=== PATIENT | male | born 1955 | race Caucasian/White ===

== ENCOUNTER 2020-11-25 10:40 | Inpatient (IN) ==
--- NOTE | 2020-11-09 15:42 | PAT Medication Instructions ---
Medication Instructions Date of Service November 09, 2020 Home Medications pantoprazole [Protonix] 40 mg PO QAM Take morning of surgery With a small sip of water, OTHERWISE NOTHING TO EAT OR DRINK AFTER MIDNIGHT: pantoprazole [Protonix] 40 mg PO QAM Other Notes If you have any questions please call us at [phone] or [phone] or [phone] or [phone]
--- NOTE | 2020-11-10 14:08 | Anesthesiology Consultation ---
Date of Service November 10, 2020 Assessment & Plan (1) Encounter for pre-operative examination: COVID Status: As of 11/10 assessment, patient denies travel to endemic area, known exposure/sick contacts, or symptoms of COVID19. Patient instructed that they and their household members must follow strict social distancing guidelines, wear a mask in public and avoid travel/events/gatherings for 14 days prior to surgery. Preoperative COVID19 testing to be completed prior to surgery per surgeon's arrangements (11/18). Patient made aware to self-isolate as much as possible between COVID testing and surgery. Chart Review Chart Review: Acceptable Risk for Surgery and Patient seen in Pre Admission Testing Teaching & Discussion Instructed NPO after midnight before surgery, except medications with 15 cc of water. Medication instructions provided according to the PAT guidelines. History Surgery Operation Date: 11/25/20 07:45 Proposed Procedures p L5-S1 Decompression and Fusion, Possible L4-L5, Spinal Cord Monitoirviridiana - Clive Aragon, Height/Weight Height: 6 ft 2 in Weight: 99.4 kg Allergies Allergy/AdvReac Type Severity Reaction Status Date / Time No Known Allergies Allergy Verified 11/05/20 11:00 Medications Home Medications Medication Instructions Recorded Confirmed Last Taken pantoprazole [Protonix] 40 mg PO QAM 11/05/20 11/05/20 Unknown Past Medical History Medical History Degenerative disc disease GERD (gastroesophageal reflux disease) History of osteomyelitis RLE History of prostate cancer dx 13 years ago; treated surgically History of vascular access device PICC for treatment of osteomyelitis Spinal stenosis Exercise / Class Metabolic Activity II 4-5 Yardwork/Stairs/Walk up hill Past Family History Family History Other No family history of adverse response to anesthesia Past Surgical History Surgical History History of colonoscopy History of esophagogastroduodenoscopy (EGD) History of prostate biopsy History of prostatectomy History of sinus surgery History of surgery removal of vascular access device History of surgery on extremity RLE (osteomyelitis) History of tonsillectomy Past Anesthesia History No Hx of Anesthesia Complications and No Family Hx of Anesthesia Complications History of PONV No Hx of PONV and No Hx of Motion Sickness Social History Smoking Status: Never smoker Do You Dip or Chew Tobacco: No Hx Alcohol Use: Yes alcohol intake frequency: holidays/special occasions only Hx Substance Use: No substance use type: does not use Review of Systems Pt denies any recent chest pain, shortness of breath, palpitations, cough, fever, URI, or uncontrolled acid reflux (controlled on PPI). Physical Exam Vital Signs BP: 152/93 (pt reports he is in pain today, usually 130s at PCP) P: 63bpm SPO2: 98% RA T: 98.1 F R: 16 ENMT Mouth: + dental restorations (crown on upper R rear molar); no chipped teeth and no loose teeth Thyromental Distance: > or= 3.5 Finger Breadths Mallampati Class: III Neck normal visual inspection; neck extension not limited Respiratory normal respiratory effort, lungs clear to auscultation Cardiovascular Rate/Rhythm: + irregularly irregular Heart Sounds: no murmur Vessels: no carotid bruit Testing Laboratory Results 11/10/20 14:21 11/10/20 14:21 PT 10.6 Seconds (9.0-12.0) 11/10/20 14:21 INR 1.0 (0.9-1.1) 11/10/20 14:21 APTT 26.6 Seconds (21.0-31.0) 11/10/20 14:21 Urine Color Yellow 11/10/20 Unknown Urine Appearance Clear (Clear) 11/10/20 Unknown Urine pH 5.5 (4.5-7.5) 11/10/20 Unknown Ur Specific [place] 1.018 (1.000-1.030) 11/10/20 Unknown Urine Protein Negative (Negative) 11/10/20 Unknown Urine Glucose (UA) Negative (Negative) 11/10/20 Unknown Urine Ketones Negative (Negative) 11/10/20 Unknown Urine Nitrite Negative (Negative) 11/10/20 Unknown Ur Leukocyte Esterase Negative (Negative) 11/10/20 Unknown Blood Type AB Positive 11/10/20 14:21 Antibody Screen NEGATIVE 11/10/20 14:21 Electrocardiogram Date: 11/10/20 Sinus rhythm at 66 bpm with premature atrial complexes. Nonspecific T wave abnormality. Prolonged QT. Chest X-Ray Date: 11/10/20 Findings: + NAD
--- NOTE | 2020-11-10 14:55 | XRay Report ---
XR chest Pre-admission PA/Lat HISTORY: 65 years-old Male pat preoperative exam. No acute chest complaints COMPARISON: None TECHNIQUE: PA and lateral views of the chest FINDINGS: Cardiac silhouette is upper limits of normal in size. No pneumothorax, pleural effusion, airspace con solidation or overt pulmonary edema. Spondylitic spurring of the spine. IMPRESSION: No acute process. ACT 112: Negative or not required by law. The above report was generated using voice recognition software. It may contain grammatical, syntax o r spelling errors. Electronically signed by: Sebastien Rowe M.D. 11/10/2020 2:54 PM
[2020-11-10 14:59] LABS: Basophils # (auto) 0.03 K/uL (0-0.2); Basophils % (auto) 0.4 %; Eosinophils # (auto) 0.35 K/uL (0-0.5); Eosinophils % (auto) 4.9 %; Hematocrit (blood only) 49.6 % (42-52); Immature Granulocytes # (auto) 0.02 K/uL (0.00-0.02); Immature Granulocytes % (auto) 0.3 %; Lymphocytes # (auto) 1.78 K/uL (1.2-3.4); Mean Corpuscular Hemoglobin 31.9 pg (25-34); Mean Corpuscular Hgb Conc 34.3 g/dL (32-36); Mean Corpuscular Volume 93.1 fL (80-100); Mean Platelet Volume 12.3 fL (7.4-10.4); Monocytes # (auto) 0.68 K/uL (0.11-0.59); Monocytes % (auto) 9.5 %; Neutrophils # (auto) 4.27 K/uL (1.4-6.5); Neutrophils % (auto) 59.9 %; Platelet Count 224 K/uL (130-400); RDW Standard Deviation 44.3 fL (36.4-46.3); Red Blood Count 5.33 M/uL (4.7-6.1); White Blood Count 7.13 K/uL (4.8-10.8)
[2020-11-10 15:00] LABS: Appearance Urine Clear (Clear); Bilirubin Urine Negative (Negative); Blood Urine Negative (Negative); Color Urine Yellow; Glucose Urine UA Negative (Negative); Ketones Urine Negative (Negative); Leukocyte Esterase Urine Negative (Negative); Nitrite Urine Negative (Negative); Protein Urine Negative (Negative); Specific Gravity Urine 1.018 (1.000-1.030); Urobilinogen Urine Negative (Negative); pH Urine 5.5 (4.5-7.5)
[2020-11-10 15:11] LABS: Partial Thromboplastin Time 26.6 Seconds (21.0-31.0); Prothrombin Time 10.6 Seconds (9.0-12.0)
[2020-11-10 15:23] LABS: BUN Creatinine Ratio 12.4 (10-20); Calcium 9.4 mg/dl (8.5-10.1); Creatinine Clr Calc Pharmacy 98.7 ml/min; Est GFR (African American) 98.2; Est GFR (Non-African American) 84.7; Potassium 3.8 mmol/L (3.5-5.1)
--- NOTE | 2020-11-10 17:06 | Electrocardiogram Report ---
Test Reason : Blood Pressure : / mmHG Vent. Rate : 066 BPM Atrial Rate : 066 BPM P-R Int : 182 ms QRS Dur : 082 ms QT Int : 440 ms P-R-T Axes : 026 010 -14 degrees QTc Int : 461 ms Sinus rhythm with Premature atrial complexes Nonspecific T wave abnormality Prolonged QT Abnormal ECG No previous ECGs available Confirmed by Fortino Ness ([id number]) on 11/10/2020 5:05:43 PM Referred By: Clive Aragon Confirmed By:Fortino Ness
[~2020-11-25 10:40] MED LIST: ACETAMINOPHEN 500 MG TAB PO SCH; CeleBREX 200 MG CAP PO SCH; GABAPENTIN 300 MG CAP PO SCH; LR 15ML/HR IV SCH; ceFAZolin 2000MG 2,000 MG/15 ML SYR IV SCH
[2020-11-25] MEDS ORDERED: PROPOFOL IV EMULSION 10 MG/ML 20 ML VIAL IV ONE (11:51)
[2020-11-25] MEDS ORDERED: ONDANSETRON INJ 2 MG/ML 2 ML VIAL ONE (11:51)
[2020-11-25] MEDS ORDERED: DEXAMETHASONE SOD INJ 4 MG/ML VIAL ONE (11:51)
[2020-11-25] MEDS ORDERED: MIDAZOLAM HCL 1 MG/ML 2ML VIAL ONE (11:51)
[2020-11-25] MEDS ORDERED: fentaNYL citrate 100 MCG/2 ML VIAL ONE (11:51)
[2020-11-25] MEDS ORDERED: ROCURONIUM BROMIDE 10 MG/ML 5 ML VIAL IV ONE ×2 (11:51→13:26)
[2020-11-25] MEDS ORDERED: LIDOCAINE HCL 2% 2 ML VIAL/AMP(20MG/ML) INFIL ONE (11:51)
[2020-11-25] MEDS ORDERED: ePHEDrine sulfate 50 MG/ML AMP IV PRN (12:19)
[2020-11-25] MEDS ORDERED: fentaNYL citrate 100 MCG/2 ML VIAL IV PRN (12:19)
[2020-11-25] MEDS ORDERED: HYDROmorphone INJ 2 MG/ML SYR/VIAL IV PRN (12:19)
[2020-11-25] MEDS ORDERED: ONDANSETRON INJ 2 MG/ML 2 ML VIAL IV PRN ×2 (12:19→17:15)
[2020-11-25] MEDS ORDERED: ATROPINE SULFATE 0.1 MG/ML 10ML SYR IV PRN (12:19)
--- NOTE | 2020-11-25 12:22 | History & Physical Bridge Note ---
Date of Service November 25, 2020 History & Physical Bridge Note I have examined the patient, reviewed the History & Physical and in the interval since the performance of the History & Physical I have noted the following changes of clinical significance: no changes noted
--- NOTE | 2020-11-25 12:23 | History & Physical Report ---
Date of Service November 25, 2020 Assessment & Plan (1) Neurogenic claudication due to lumbar spinal stenosis: Admission and Anticipated Discharge Date Admission Date: L5-S1 decompression fusion, possible L4-L5 History of Present Illness Chief Complaint: Back and bilateral leg pain Primary Care Provider: Mayank De This is a 65-year-old male who presents with chronic persistent back and bilateral leg pain. After failing course of nonoperative care is here for surgical invention. Allergies Allergy/AdvReac Type Severity Reaction Status Date / Time No Known Allergies Allergy Verified 11/25/20 11:21 Home Medications Medication Instructions Recorded Confirmed Type pantoprazole [Protonix] 40 mg PO QAM 11/05/20 11/25/20 History Past Med/Surg History Medical History Degenerative disc disease GERD (gastroesophageal reflux disease) History of osteomyelitis RLE History of prostate cancer dx 13 years ago; treated surgically History of vascular access device PICC for treatment of osteomyelitis Spinal stenosis Surgical History History of colonoscopy History of esophagogastroduodenoscopy (EGD) History of prostate biopsy History of prostatectomy History of sinus surgery History of surgery removal of vascular access device History of surgery on extremity RLE (osteomyelitis) History of tonsillectomy Family History Other No family history of adverse response to anesthesia Social History Smoking Status: Never smoker Second Hand Exposure: Yes (as a child); Do You Dip or Chew Tobacco: No; Hx Alcohol Use: Yes Hx Substance Use: No Preferred Language: Burmese Communication Ability: Effective Sandwich Peddler Required: No Beliefs That Will Affect Care: None Current Living Situation: Spouse Feels Safe at Home: Yes Safety Concerns: Feels Safe At This Time Assistive Devices: None Physical Exam Physical Exam: Patient is alert and oriented Heart regular in rhythm Lungs clear to auscultation Results & Data ([facility]) Vital Signs (Past 12 Hours) Vital Signs Temp Pulse Resp BP Pulse Ox 11/25/20 11:44 156/92 H 11/25/20 11:11 36.6 C 93 H 20 173/112 H 99
[2020-11-25] MEDS ORDERED: BACITRACIN INJ 50,000 UNIT VIAL ONE (12:40)
[2020-11-25] MEDS ORDERED: BUPIVACAINE/EPINEPHRINE 0.5% MPF 1:200,000 30 ML VIAL ONE (12:41)
[2020-11-25] MEDS ORDERED: KETAMINE 50 MG/5 ML SYRINGE ONE (13:16)
[2020-11-25] MEDS ORDERED: ALBUTEROL HFA INHALER 8.5 GM ONE (13:24)
[2020-11-25] MEDS ORDERED: GLYCOPYRROLATE 0.2 MG/ML VIAL ONE ×2 (13:24→15:01)
[2020-11-25] MEDS ORDERED: SODIUM CHLORIDE 0.9% INJ 10 ML VIAL ONE (13:39)
[2020-11-25] MEDS ORDERED: ePHEDrine sulfate 50 MG/ML AMP ONE (13:39)
[2020-11-25] MEDS ORDERED: FLOSEAL HEMOSTATIC MATRIX 10ML TOP ONE (14:48)
[2020-11-25] MEDS ORDERED: ALBUMIN HUMAN 5% 12.5 GM/250 ML VIAL IV ONE (14:54)
[2020-11-25] MEDS ORDERED: PHENYLEPHRINE 100MCG/ML 5ML SYR ONE (14:59)
[2020-11-25] MEDS ORDERED: PHENYLEPHRINE HCL 10 MG/ML VIAL ONE (15:01)
[2020-11-25] MEDS ORDERED: NEOSTIGMINE METHYLSULFATE 1 MG/ML 10ML VIAL ONE (15:01)
--- NOTE | 2020-11-25 15:29 | Operative Report ---
Post Operative Report Pre & Post Diagnosis Operation Date: 11/25/20 12:25 Pre-Op Diagnosis: Lumbar spinal stenosis with radiculopathy Post-Op Diagnosis: Same I identified the patient and participated in the time-out.: Yes Procedure Operation Date: 11/25/20 12:25 Actual Procedures #1 lumbar decompression with bilateral medial facetectomies foraminotomies L3-4 L4-5 and L5-S1. #2 posterior spinal fusion L4-L5 L5-S1. #3 placement of posterior instrumentation L4-5 and L5-S1. #4 interbody fusion L4-5 L5-S1. #5 placement peek cage 11 x 26 mm at L4-5 and 10 x 26 mm L5-S1. #6 placement locally harvested morselized autograft in the posterior lateral gutters. #7 placement of I factor in the posterior gutters interbody space. Surgeon Clive Aragon DO Cosmetic Counselor Radha Granados Estimated Blood Loss 250 Findings Consistent with Post-Op Diagnosis Specimens None Indications This is a 65-year-old male well-known to me the presents with above-mentioned diagnosis after failing since course of nonoperative care is here for surgical invention. Description of Procedure Patient was met with identified informed consent obtained. Patient was then taken to the operative suite underwent intubation placed in a prone position the Prashant table atop the Obed frame. All bony prominences well-padded eyes inspected to ensure no external pressure placed upon the. This point the lumbar spine was prepped and draped in a sterile fashion. Sharp dissection with the assistance of Bovie cautery performed down to and exposing the lamina and transverse processes of L4-L5 and sacral ala bilaterally. From caudal cephalad fashion complete laminectomy L5 L4 and partial laminectomy L3 was performed including medial facetectomies and foraminotomies addressing severe spinal stenosis. Pedicle screws were then placed in L4-L5 and S1 levels bilaterally with assistance of fluoroscopy and the proper sized olga placed. By way of a transforaminal portion left complete discectomy of L5-S1 was performed endplates curetted to subcortical being bone and a 10 x 26 mm peek cage filled with I f actor tapped in position. Then proceeded L4-L5 again by way of a transforaminal on the left discectomy performed endplates curetted to subcortically bone and 11 x 26 mm peek cage filled with I factor tapped in position. The rods were then locked in final position bilaterally. The transverse processes of L4-L5 and sacral ala burred to subcortical bleeding bone. I factor and local autograft was then placed in the posterior gutters. 15 round VU drain inserted. The incision was then closed with 1 Vicryl the fascia 2-0 Vicryl subcutaneously and 4 Monocryl for final skin closure. Steri-Strip sterile dressings placed. Patient will continue PACU stable condition. Please note spinal cord monitoring was utilized at the procedure no changes noted. Lastly Radha Granados was present at the entire procedure about the patient positioning complex portions of the surgery and final skin closure. I attest to the content of the Intraoperative Record and any orders documented t herein. Any exceptions are noted below.
--- NOTE | 2020-11-25 15:46 | Fluoroscopy Report ---
FL lumbar spine 2-3V CLINICAL HISTORY: L5-S1 DECOMPRESSION AND FUSION POSSIBLE L4-L5 COMPARISON STUDY: MRI dated 11/05/2020 FLUOROSCOPY TIME: 30 seconds. NUMBER OF FLUOROSCOPIC IMAGES: 2 FINDINGS: 2 intraoperative fluoroscopic spot images demonstrate postsurgical changes of an L4-5 and L 5-S1 discectomies interbody fusion. There is posterior pedicle screw fixation with adjoining spinal r ods IMPRESSION: Intraoperative fluoroscopic spot images demonstrating an L4-S1 spinal decompression and fusion. ACT 112: Negative or not required by law. Electronically signed by: Aaron Renee M.D. 11/25/2020 3:45 PM
--- NOTE | 2020-11-25 16:02 | Anesthesiology Progress Note ---
Date of Service November 25, 2020 Anesthesia Post Procedure Vital Signs Vital Signs: Temp Pulse Pulse Resp BP Pulse Ox 11/25/20 15:59 80 14 112/64 99 11/25/20 15:50 81 14 107/65 99 11/25/20 15:43 36.6 C 94 H 14 146/80 H 100 11/25/20 11:44 156/92 H 11/25/20 11:11 36.6 C 93 H 20 173/112 H 99 Transfer of Care Handoff Completed per policy Notes Mental Status: alert / awake / arousable and participated in evaluation Patient Amnestic to Procedure: Yes Nausea / Vomiting: adequately controlled Pain: adequately controlled Airway Patency, RR, SpO2: stable & adequate BP & HR: stable & adequate Hydration State: stable & adequate Anesthetic Complications: no major complications apparent and Pt Satisfied with anesthetic care
[2020-11-25] MEDS ORDERED: HYDROmorphone INJ 1 MG/ML SYRINGE IV PRN (17:15)
[2020-11-25] MEDS ORDERED: FAMOTIDINE 20 MG TAB PO PRN (17:15)
[2020-11-25] MEDS ORDERED: LORazepam 0.5 MG TAB PO PRN (17:15)
[2020-11-25] MEDS ORDERED: ACETAMINOPHEN 1,000 MG/100 ML VIAL IV PRN (17:15)
[2020-11-25] MEDS ORDERED: METOCLOPRAMIDE HCL INJ 5 MG/ML 2 ML VIAL IV PRN (17:15)
[2020-11-25] MEDS ORDERED: LORazepam 0.5 MG/1 ML VIAL IV PRN (17:15)
[2020-11-25] MEDS ORDERED: hydrOXYzine HCl 25 MG TAB PO PRN (17:15)
[2020-11-25] MEDS ORDERED: HYDROmorphone INJ 0.5 MG/0.5 ML SYR IV PRN (17:15)
[2020-11-25] MEDS ORDERED: SOD PHOSPHATE/SOD BIPHOSPHATE ENEMA 132 ML BTL PR PRN (17:15)
[2020-11-25] MEDS ORDERED: diphenhydrAMINE Capsule 25 MG CAP PO PRN (17:15)
[2020-11-25] MEDS ORDERED: DO NOT ADMINISTER FLU VACCINE PRN (17:15)
[2020-11-25] MEDS ORDERED: PROMETHAZINE HCL 12.5 MG in SODIUM CHLORIDE 0.9% 50 ML IV PRN (17:15)
[2020-11-25] MEDS ORDERED: oxyCODONE HCL IR 5 MG TAB (IMMEDIATE RELEASE) PO PRN (17:15)
[2020-11-25] MEDS ORDERED: NALOXONE HCL 0.4 MG/1 ML VIAL/CARP IV PRN (17:15)
[2020-11-25] MEDS ORDERED: ONDANSETRON 4 MG OD TAB PO PRN (17:15)
[2020-11-25] MEDS ORDERED: MAGNESIUM HYDROXIDE SUSP 30 ML UDC PO PRN (17:15)
[2020-11-25] MEDS ORDERED: DO NOT ADMINISTER PNEUMOCOCCAL VACCINE PRN (17:15)
[2020-11-25] MEDS ORDERED: ALUMINUM/MAGNESIUM SUSP 30 ML UDC PO PRN (17:15)
[2020-11-25] MEDS ORDERED: bisacodyL 10 MG SUPP PR PRN (17:15)
[2020-11-25] MEDS: KETOROLAC 30 MG/ML VIAL IV SCH ×3 (17:56→23:31)
[2020-11-25] MEDS: LACTATED RINGER'S 1,000 ML IV SCH ×2 (17:56→23:31)
[2020-11-25] MEDS: ACETAMINOPHEN 500 MG TAB PO PRN (20:55)
[2020-11-25] MEDS: DOCUSATE SODIUM/SENNA 50/8.6MG TAB PO SCH (20:55)
[2020-11-25] MEDS: ceFAZolin 2000MG 2,000 MG/15 ML SYR IV SCH (20:55)
[2020-11-25] MEDS ORDERED: COUGH DROP (SUGAR FREE) LOZ 24 LOZ/1 BOX BUCCAL PRN (23:35)
[2020-11-26] MEDS: KETOROLAC 30 MG/ML VIAL IV SCH ×2 (05:10→12:42)
[2020-11-26] MEDS: ceFAZolin 2000MG 2,000 MG/15 ML SYR IV SCH (05:10)
[2020-11-26] MEDS: POLYETHYLENE (MIRALAX) 17 GM PACK PO SCH ×4 (05:10→19:56)
[2020-11-26 06:34] LABS: Hematocrit (blood only) 40.4 % (42-52); Hemoglobin 13.7 g/dL (14.0-18.0); Immature Granulocytes # (auto) 0.05 K/uL (0.00-0.02); Immature Granulocytes % (auto) 0.3 %; Lymphocytes % (auto) 6.5 %; Mean Corpuscular Hemoglobin 31.4 pg (25-34); Mean Corpuscular Hgb Conc 33.9 g/dL (32-36); Mean Corpuscular Volume 92.4 fL (80-100); Mean Platelet Volume 11.7 fL (7.4-10.4); Monocytes # (auto) 1.24 K/uL (0.11-0.59); Monocytes % (auto) 8.1 %; Neutrophils # (auto) 13.11 K/uL (1.4-6.5); Neutrophils % (auto) 85.1 %; Platelet Count 265 K/uL (130-400); RDW Coefficient of Variation 13.3 % (11.5-14.5); RDW Standard Deviation 45.5 fL (36.4-46.3); Red Blood Count 4.37 M/uL (4.7-6.1)
[2020-11-26 07:14] LABS: BUN Creatinine Ratio 12.6 (10-20); Calcium 9.2 mg/dl (8.5-10.1); Creatinine Clr Calc Pharmacy 78.6 ml/min; Est GFR (African American) 82.1; Est GFR (Non-African American) 70.9; Potassium 3.9 mmol/L (3.5-5.1)
[2020-11-26] MEDS: ACETAMINOPHEN 500 MG TAB PO PRN (07:43)
[2020-11-26] MEDS: PANTOprazole 40 MG TAB PO SCH (08:39)
--- NOTE | 2020-11-26 12:20 | Orthopedic Progress Note ---
Date of Service November 26, 2020 Assessment & Plan (1) Neurogenic claudication due to lumbar spinal stenosis: Admission and Anticipated Discharge Date Admission Date: November 25, 2020 This time we will continue physical therapy on her VU output and possible discharge home in next few days. Subjective Back pain controlled leg symptoms markedly improved. Physical Exam Physical Exam: Patient is good strength testing appears comfortable. Results & Data ([facility]) Vital Signs (Past 12 Hours) Vital Signs Temp Pulse Resp BP Pulse Ox 11/26/20 07:58 36.7 C 69 18 168/95 H 97 11/26/20 03:50 36.5 C 65 16 101/62 96
[2020-11-26] MEDS: traMADol HCL 50 MG TABLET PO PRN ×2 (17:11→23:09)
[2020-11-26] MEDS: DOCUSATE SODIUM/SENNA 50/8.6MG TAB PO SCH (19:56)
[2020-11-27] MEDS: ACETAMINOPHEN 500 MG TAB PO PRN (00:03)
[2020-11-27] MEDS: traMADol HCL 50 MG TABLET PO PRN (06:20)
[2020-11-27] MEDS: POLYETHYLENE (MIRALAX) 17 GM PACK PO SCH ×2 (06:20→11:59)
[2020-11-27] MEDS: PANTOprazole 40 MG TAB PO SCH (08:43)
[2020-11-27] MEDS ORDERED: dexAMETHasone 8 MG in SYRINGE 0 ML IV SCH (09:00)
--- NOTE | 2020-11-27 10:07 | Discharge Summary ---
Date of Service November 27, 2020 Admission HPI Per Admitting Provider This is a 65-year-old male who presents with chronic persistent back and bilateral leg pain. After failing course of nonoperative care is here for surgical invention. Principal Diagnosis Lumbar spinal stenosis with neurogenic claudication Discharge Data Allergies Allergy/AdvReac Type Severity Reaction Status Date / Time No Known Allergies Allergy Verified 11/25/20 11:21 Procedures Performed Operation Date: 11/25/20 12:25 Actual Procedures p L4-S1 Decompression and Fusion, Spinal Cord Monitoring, Application of Bone Graft(Not Applicable) - Clive Aragon DO Ordered Studies 11/25/20 12:25 FL fluoroscopy <1hr Routine FL lumbar spine 2-3V Routine Hospital Course (1) Neurogenic claudication due to lumbar spinal stenosis: Patient went lumbar decompression fusion tolerates well second orthopedic for postoperative. Postop day 1 is up and ambulating Jose postop day #2. Excellent strength testing VU drain decreasing appropriately. Pain well controlled. Subsequent discharge home. Discharge orders instructions from the chart for further review. Total Time Total Time Spent Total Time Spent (In Minutes): 20 minutes Discharge Plan Discharge Items Patient Disposition: Home - Self-Care Reason For Visit: Spinal Stenosis, Lumbar Region without Discharge Diagnosis: Lumbar spinal stenosis with radiculopathy Activity: As commented below Non-emergency contact: Primary Care Provider Call non-emergency contact if: you have any medication questions Follow-up/Referrals: Mayank De [Primary Care Provider] - Diet: Regular Addtl Attending Provider Instructions: ACTIVITY RECOMMENDATIONS: SELF CARE INSTRUCTIONS AFTER THORACIC/LUMBAR FUSIONS 1. You may walk to your tolerance. It is good exercise for your legs and back. Expect some back and intermittent leg aches and pains. 2. You may perform "counter-top" level activities (make a sandwich, rody with a project, etc.). 3. No bending or lifting of more than 10 pounds or back twisting of any nature (roll like a log when turning in bed). 4. You may ride in a car for 20-30 minutes at a time. No driving until after your first visit with your doctor. 5. Frequent changes of position and restricting sitting to 30 minutes at a time will help limit the amount of back spasms and stiffness you may experience. 6. You may discontinue the use of ambulatory aids (cane, crutches, etc.) once your strength and confidence allow. 7. You may customer training specialist the shower and let water strike your incision when you arrive home at least once daily. Do not take a tub bath, sit in a hot tub or go into a swimming pool until after your first recheck in the office. SPECIAL CARE INSTRUCTIONS: VERY IMPORTANT TO READ AND REVIEW A. Your surgical incision has been closed with a cosmetic suture under the skin that will dissolve in about 6 weeks. In 14 days, you can use a pair of clean scissors and cut the suture that is left outside of the skin at the ends of your incision. 1. The small skin tapes can be removed 7 days after surgery if they have not fallen off by that point. 2. You may keep the wound open to air as much as possible to promote healing after post-op day number 5 unless told otherwise by your doctor. 3. If you think the wound looks like it is becoming infected (redness or worsening drainage) and/or you are experiencing fever, chill or worsening back pain and muscle spasms, contact the office so that we may evaluate you as soon as possible. B. Complications are uncommon, but please contact us if you have any signs or symptoms of: 1. wound infection (fever higher than 102.5 degrees F, redness, separation of wound, drainage, or increasing pain from the incision) 2. blood clots in legs (pain, swelling, redness and warmth in legs) 3. urinary tract infection (fever higher than 102.5 degrees F, burning upon urination or increased frequency of urination) 4. nerve problems (inability to walk on your toes or heels, numbness, loss of bowel or bladder control) 5. any other symptoms that concern you C. Please call the office at if you have any concerns or questions about your operation or recovery. D. No smoking! Smoking drastically decreases the chance of a solid fusion. E. Do not take any anti-inflammatory medications (Indocin, Advil, Motrin, Aspirin, Naprosyn, etc.) as these may inhibit the chance of a solid fusion. Tylenol is okay to take for pain. MANAGING PAIN AFTER SPINAL SURGERY 1. Narcotic medication is intended for short-term use and will be provided for surgical pain. Surgical pain usually lasts for a period of 4-6 weeks. Narcotic medication includes Percocet, Vicodin, Darvocet, Tylenol #3 or Lortab. 2. Longer-term pain is more appropriately treated with non-narcotic medication such as Tylenol ES. 3. Muscle spasm is not appropriately treated with narcotics. Muscle relaxers such as Soma, Flexeril or Skelaxin can be used along with Tylenol ES. 4. Remember that we all live with some "aches and pains". This is not unusual or uncommon after an injury or as we get older. a. Back pain is expected and may include muscle spasms for 4 to 6 weeks after surgery. The pain should gradually improve. If the pain worsens for no apparent reason, please contact the office. b. Intermittent leg pain may also be experienced and should not be concerned about unless it worsens for no apparent reason. If so, please contact the office. 5. We will provide appropriate medication within the normal guidelines of their prescribed use. We will also be very cautious and aware of potential abuse and extended duration of patients' medication needs. a. Pain medications are for your comfort and to assist with sleep and rest so that the tissue can heal. They are not provided in order to return to normal activity and should not be used through the day. To do so or worsening pain at night can result from ongoing tissue damage and deve lopment of tolerance to the prescribed medicine. 6. Please allow 2-3 days to process refills. Prescriptions will not be mailed but must be picked up at the office. FOLLOW UP VISIT: Keep your scheduled follow-up appointment. Any questions, please call the office at . Pending Studies at Discharge: No Stand-Alone Forms: [facility], Smoking Cessation Medications and DC Order Prescriptions: New oxycodone 5 mg tablet 5 mg PO Q6H PRN (Reason: pain, severe) Qty: 30 RF: 0 tramadol 50 mg tablet 50 mg PO Q6H PRN (Reason: pain, moderate) Qty: 30 RF: 0 Continued pantoprazole [Protonix] 40 mg Tablet,Delayed Release (Dr/Ec) 40 mg PO QAM RF: 0 Discharge Orders: Discharge Order (Routine); Ordered 11/27/20 Ordered By: Clive Aragon Admission Data Admit Date/Time: 11/25/20 15:57 Attending Provider: Clive Aragon Admit Provider: Clive Aragon Primary Care Provider: Mayank De
== END 2020-11-27 17:27 | disposition home or self-care (01) | DRG 455 ==
LOC: ASU 10:40 → 3E 15:57

== ENCOUNTER 2024-06-26 09:12 | Observation (INO) ==
--- NOTE | 2024-06-26 10:27 | History & Physical Report ---
Date of Service June 26, 2024 Assessment & Plan (1) NSTEMI (non-ST elevated myocardial infarction): Plan: Continue IV heparin Discussed with Dr Ahuja and Dr Bhakta and patient will be taken to the cardiac cath Further treatment pending results of cardiac catheterization Notable prior night terrors on metoprolol and bisoprolol therefore recently discontinued these 1 month ago Notable also on Xarelto for cardiovascular benefits - he has not history of atrial fibrillation or alterative reason he is on this Lipid panel and HbA1C with AM labs Plan GERD - continue pantoprazole 40mg PO daily VTE Prophylaxis - IV heparin Diet - NPO pending cardiac catheterization Disposition - admit to PCU Admission and Anticipated Discharge Date Admission Date: June 26, 2024 History of Present Illness Chief Complaint: Chest pain Primary Care Provider: Rupert Middleton DO Armaan Phillips is a 68 year old male with known silent coronary artery disease s/p cardiac stents who presents as a direct admission from [facility] due to chest pain with elevated troponin. He presented to the ER overnight with chest pain after eating earlier in the evening. Sargents like indigestion with pressure across upper chest with symptoms lasting for an hour. No radiation, diaphoresis or shortness of breath. Some relief with antacid and improved with lying down. In the ER his troponin increased from 92 -> 259 and his case was discussed with his drafter electronic naval gunfire liaison officer Dr Llanes and accepted patient for transfer. Allergies Allergy/AdvReac Type Severity Reaction Status Date / Time ticagrelor [From Brilinta] AdvReac Difficulty Unverified 06/26/24 11:06 Breathing Home Medications Medication Instructions Recorded Confirmed Type pantoprazole 40 mg tablet,delayed 40 mg PO QAM 11/05/20 06/26/24 History release (Protonix) aspirin 81 mg tablet,delayed 81 mg PO QAM 03/15/23 06/26/24 History release rivaroxaban 2.5 mg tablet (Xarelto) 2.5 mg PO BID 03/15/23 06/26/24 History rosuvastatin 5 mg tablet 5 mg PO DAILY 06/26/24 06/26/24 History valsartan 40 mg tablet 40 mg PO HS 06/26/24 06/26/24 History Past Med/Surg History Problem List (Updated 06/26/24 @ 11:26 by Vicky Ahuja DO) Hyperbilirubinemia Hypercholesteremia PAC (premature atrial contraction) PVC (premature ventricular contraction) Thoracic aortic aneurysm NSTEMI (non-ST elevated myocardial infarction) Encounter for pre-operative examination Neurogenic claudication due to lumbar spinal stenosis Gross hematuria Nephrolithiasis Prostate cancer Medical History Kidney stone on right side History of kidney stones History of vascular access device PICC for treatment of osteomyelitis History of osteomyelitis RLE Spinal stenosis Degenerative disc disease GERD (gastroesophageal reflux disease) History of prostate cancer dx 15 years ago; treated surgically Surgical History History of surgery for kidney stones History of lithotripsy History of cardiac cath Jan 13 2022 - [facility] - asymptomatic blockages...total of 5 stents. History of cholecystectomy Aug 17 2022. History of lumbar fusion History of surgery removal of vascular access device History of prostatectomy History of sinus surgery History of surgery on extremity RLE (osteomyelitis) History of prostate biopsy History of tonsillectomy History of esophagogastroduodenoscopy (EGD) History of colonoscopy Family History Aunt Family history of colon cancer Other No family history of adverse response to anesthesia Social History Smoking Status: Never smoker Second Hand Exposure: No; Do You Dip or Chew Tobacco: No; Hx Alcohol Use: No Hx Substance Use: No Preferred Language: Samoan Communication Ability: Effective Outside Cutter Required: No Beliefs That Will Affect Care: None marital status: Current Living Situation: Spouse Other Information That Helps Us Care for You: No Feels Safe at Home: Yes Safety Concerns: Feels Safe At This Time Assistive Devices: None Review of Systems Review of Systems: All systems reviewed & are unremarkable except as noted in HPI & below Physical Exam Constitutional: WD/WN, vitals as above Eyes: + anicteric sclerae; normal pupil size ENMT: external ear and nose normal, oropharynx normal Respiratory: normal respiratory effort, lungs clear to auscultation Cardiovascular: RRR, no murmur, no edema Gastrointestinal (Abdomen): normal bowel sounds, soft, nontender, no hepatosplenomegaly Musculoskeletal: no cyanosis or clubbing, extremities motor strength 5/5 Skin: no rashes, warm and dry Neurologic: moves all extremities and awake; not confused Psychiatric: A+Ox3, euthymic affect Results & Data Results & Data Vital Signs (Past 12 Hours) Vital Signs Temp Pulse Resp BP Pulse Ox O2 Del Method 06/26/24 10:03 69 19 98 06/26/24 10:00 160/85 H 06/26/24 09:51 82 18 96 06/26/24 09:45 71 15 96 06/26/24 09:31 182/95 H 06/26/24 09:24 62 06/26/24 09:19 36.9 C 70 19 185/129 H 97 Room Air Laboratory Results 06/26/2024 [00:16] Total bilirubin 1.1 Sodium 139 Potassium 3.4 WBC 7.41 Hgb 16.5 [1am] HS Troponin I 92 [3am] HS troponin I 259 ECG Rate (beats per minute): 81 Rhythm: normal sinus Findings: + other (Non-specific T wave abnormality) Code Status & VTE Plan VTE Prophylaxis Plan VTE Prophylaxis will be ordered: Yes PG Care Time/CCT Total # of Minutes Spent Total Time Spent with Patient: Total time spent is greater than 50% in coordination of care (as documented) at patient's floor/unit and/or counseling patient: Coding Level of Care Code 37208 INT INP/OBS CARE 2/55MIN Diagnoses NSTEMI (non-ST elevated myocardial infarction) I21.4
--- NOTE | 2024-06-26 10:36 | Pre Anesthesia Assessment ---
Date of Service June 26, 2024 Pre Sedation Assessment Vital Signs Temp Pulse Resp BP Pulse Ox O2 Del Method 06/26/24 10:03 69 19 98 06/26/24 10:00 160/85 H 06/26/24 09:51 82 18 96 06/26/24 09:45 71 15 96 06/26/24 09:31 182/95 H 06/26/24 09:24 62 06/26/24 09:19 36.9 C 70 19 185/129 H 97 Room Air Cardiovascular RRR, no murmur, no edema Respiratory normal respiratory effort, lungs clear to auscultation Pre-Sedation Airway Assessment Smoking Status: Never smoker Mallampati 2 ASA 3 Notes The planned sedation has been discussed with the patient. Informed Consent was obtained. I have identified the patient, determined the appropriateness of sedation and have assessed the patient immediately prior to the procedure. All medicine(s) and interventions are by my order.
--- NOTE | 2024-06-26 11:30 | Cardiology Consultation ---
Date of Consultation June 26, 2024 Assessment & Plan (1) NSTEMI (non-ST elevated myocardial infarction): (2) Thoracic aortic aneurysm: (3) PVC (premature ventricular contraction): (4) PAC (premature atrial contraction): (5) Hypercholesteremia: (6) Hyperbilirubinemia: Plan Plan on [facility] today; depending on results further rec will follow. Will likely need to resume BB-consider nadolol given the history of nightmares/terror. In addition, will try to avoid Brilinta if needs new stents due to his prior SOB with this med. Recently he held his statin at the advice of PCP due to abnormal LFTs (only isolated bilirubin elevation) which IS UNLIKELY TO STEM FROM STATIN USE. I had him resume his statin several weeks ago. Will review the LFTs done in ER. History of Present Illness Reason for Consultation: NonSTEMI Requesting Physician: Transfer from [place] [facility] History of Present Illness Mr. Tiwari is a very nice 68 y/o gentleman with a hx of previous silent CAD diagnosed incidentally when he had an abdominal CT scan done for urinary issues and extensive coronary artery calcification was detected. Cardiac work up involved ECHO and stress testing which was abnormal showing TAA as well as eventual cath showing multivessel CAD. He underwent staged interventions with Dr. Mcconnell with LAD stents x 2 and Cx stents with rotoblation x 3. He was on Brilinta which he did not tolerate due to debilitating SOB. The was eventually changed to Plavix and after about 1 year was changed to vascular Xarelto 2.5mg bid along with ASA. He was also on valsartan and metoprolol but about 6 months ago was getting severe nightmares possibly BB related. We switched this to bisoprolol and they still continued. About 1 month ago I saw him in the office and DC the BB. He presented to [facility] last pm with severe NEW onset CP radiating across his chest. He tried lying down and could not get comfortable. His urged him to come to the ER. Initial ECG from [facility] shows NST freq PACs and PVCs. Initial Troponin was negative, but repeat became +. Patient was started on IV heparin and transferred to our ER. I discussed with him and recommend [facility] to redefine his anatomy. His last dose of Xarelto was yesterday am. I reviewed his cath with Dr. Bhakta as well. Pt is currently pain free. Allergies Allergy/AdvReac Type Severity Reaction Status Date / Time ticagrelor [From Brilinta] AdvReac Difficulty Unverified 06/26/24 11:06 Breathing Home Medications Medication Instructions Recorded Confirmed Type pantoprazole 40 mg tablet,delayed 40 mg PO QAM 11/05/20 03/31/23 History release (Protonix) aspirin 81 mg tablet,delayed 81 mg PO QAM 03/15/23 03/31/23 History release metoprolol succinate 25 mg 25 mg PO QPM 03/15/23 03/31/23 History tablet,extended release 24 hr rivaroxaban 2.5 mg tablet (Xarelto) 2.5 mg PO BID 03/15/23 03/31/23 History rosuvastatin 10 mg tablet (Crestor) 10 mg PO QPM 03/15/23 03/31/23 History ciprofloxacin HCl 500 mg tablet 500 mg PO BID #6 tabs 03/31/23 Rx (Cipro) tramadol 50 mg tablet 50 mg PO Q6H PRN pain #20 tabs 03/31/23 Rx Patient History Medical History Kidney stone on right side History of kidney stones History of vascular access device PICC for treatment of osteomyelitis History of osteomyelitis RLE Spinal stenosis Degenerative disc disease GERD (gastroesophageal reflux disease) History of prostate cancer dx 15 years ago; treated surgically Surgical History History of surgery for kidney stones History of lithotripsy History of cardiac cath Jan 13 2022 - [place] - asymptomatic blockages...total of 5 stents. History of cholecystectomy Aug 17 2022. History of lumbar fusion History of surgery removal of vascular access device History of prostatectomy History of sinus surgery History of surgery on extremity RLE (osteomyelitis) History of prostate biopsy History of tonsillectomy History of esophagogastroduodenoscopy (EGD) History of colonoscopy Family History Aunt Family history of colon cancer Other No family history of adverse response to anesthesia Social History Smoking Status: Never smoker Second Hand Exposure: Yes (as a child); Do You Dip or Chew Tobacco: No; Hx Alcohol Use: Yes Hx Substance Use: No Preferred Language: Upper Sorbian Communication Ability: Effective Colorer Hides And Skins Required: No Beliefs That Will Affect Care: None marital status: Current Living Situation: Spouse Feels Safe at Home: Yes Assistive Devices: None Review of Systems Review of Systems: All systems reviewed & are unremarkable except as noted in HPI & below Physical Exam Physical Exam: AAO x 3 in NAD Eyes: PERRL, conjunctivae normal, anicteric sclerae ENMT: external ear and nose normal, oropharynx normal Neck: no bruits Respiratory: normal respiratory effort, lungs clear to auscultation Cardiovascular: regular rhythm with frequent ectopy ANGI at base Gastrointestinal (Abdomen): soft NT +BS Neurologic: patellar DTR's 2+ bilat, sensation intact and PERRL, EOMI, accommodation nl, no face palsy, no dysarthria Results & Data Vital Signs (Past 12 Hours) Vital Signs Temp Pulse Pulse Resp BP BP Pulse Ox 06/26/24 10:47 80 16 182/85 H 97 06/26/24 10:30 142/88 H 06/26/24 10:27 73 18 97 06/26/24 10:03 69 19 98 06/26/24 10:00 160/85 H 06/26/24 09:51 82 18 96 06/26/24 09:45 71 15 96 06/26/24 09:31 182/95 H 06/26/24 09:24 62 06/26/24 09:19 36.9 C 70 19 185/129 H 97 O2 Del Method 06/26/24 10:47 Room Air 06/26/24 10:30 06/26/24 10:27 06/26/24 10:03 06/26/24 10:00 06/26/24 09:51 06/26/24 09:45 06/26/24 09:31 06/26/24 09:24 06/26/24 09:19 Room Air Laboratory Results Labs reviewed from [facility]
[2024-06-26] MEDS: fentaNYL citrate PF 100 MCG/2 ML VIAL ONE (12:39)
[2024-06-26] MEDS: HEPARIN (PORCINE) 1000 UNIT/ML 10 ML (CATH LAB USE ONLY) ONE (12:40)
[2024-06-26] MEDS: OPTIRAY 350 ONE (12:40)
[2024-06-26] MEDS: MIDAZOLAM HCL 1 MG/ML 2ML VIAL ONE ×2 (12:41→12:43)
[2024-06-26] MEDS: EPTIFIBATIDE 2 MG/ML 10 ML VIAL (CATH LAB USE ONLY) IV ONE ×2 (12:42→12:43)
[2024-06-26] MEDS: diphenhydrAMINE 50 MG/ML VIAL ONE (12:42)
[2024-06-26] MEDS: NITROGLYCERIN/D5W 100MCG/ML 20ML SYR ONE (12:42)
[2024-06-26] MEDS: EPTIFIBATIDE 0.75 MG/ML 75MG VIAL (CATH LAB USE ONLY) IV ONE (12:42)
[2024-06-26] MEDS: niCARdipine HCL INJ 2.5 MG/ML 10 ML AMP ONE (12:42)
[2024-06-26] MEDS: CLOPIDOGREL BISULFATE 300 MG TAB ONE (12:43)
--- NOTE | 2024-06-26 13:01 | Post Anesthesia Assessment ---
Date of Service June 26, 2024 Post Sedation Assessment Vital Signs Temp Pulse Pulse Resp BP BP Pulse Ox 06/26/24 12:59 84 169/103 H 98 06/26/24 10:47 80 16 182/85 H 97 06/26/24 10:30 142/88 H 06/26/24 10:27 73 18 97 06/26/24 10:03 69 19 98 06/26/24 10:00 160/85 H 06/26/24 09:51 82 18 96 06/26/24 09:45 71 15 96 06/26/24 09:31 182/95 H 06/26/24 09:24 62 06/26/24 09:19 36.9 C 70 19 185/129 H 97 O2 Del Method 06/26/24 12:59 Room Air 06/26/24 10:47 Room Air 06/26/24 10:30 06/26/24 10:27 06/26/24 10:03 06/26/24 10:00 06/26/24 09:51 06/26/24 09:45 06/26/24 09:31 06/26/24 09:24 06/26/24 09:19 Room Air Recovery Score Activity: Moves 4 extremities Respiration: Deep Breath/Cough Circulation: +/-20% PreAnes Value Consciousness: Fully Awake Oxygen Saturation: > 92% On Room Air Discharge Sedation Level of Care: Fast Track Phase II Post Sedation Plan On clinical assessment, the patient appears to have tolerated the sedation without complications. Patient is recovering as anticipated. Patient will continue to be monitored by nursing and may be discharged when sedation discharge criteria are met per below protocol. Upon Completions of procedure up to 15 minutes continue every 5 minute vital signs and the P.A.R. score; then discharge to a Phase I or Fast Track to Phase II per the following guidelines: * Discharge Patient to appropriate Phase II area if PAR is 8 or greater or return to pre- procedure baseline. The post - procedure orders will be as directed. * If PAR score is less than 8 or not return to pre-procedure baseline then patient will follow Phase I monitoring till PAR is reached for Phase II. The Phase I may be done in procedure room or may call to secure a Phase I area. * If naloxone or flumazenil are used for reversal, hold in Phase I for continued monitoring from when last reversal dose was given for a minimum of 60 minutes or longer pending the nurse and/or physician discretion of patient condition before discharge to Phase II. Please call the Sedation Physician to re-evaluate and complete post-note for discharge to Phase II area. Do NOT discharge from procedure sedation or Phase 1 until post- sedation evaluation note is complete by procedure /sedation MD Sedation Discharge Instructions to be given to the patient at discharge to home. [facility] Procedure Codes (Charges) Indication for Procedure Indication for procedure: NSTEMI
[2024-06-26] MEDS ORDERED: STAT IV Infusion **Titration per Protocol STA (13:29)
[2024-06-26] MEDS ORDERED: EPTIFIBATIDE BOLUS/DRIP IV STA (13:29)
[2024-06-26] MEDS: EPTIFIBATIDE 75 MG/100 ML VIAL IV SCH (14:25)
[2024-06-26 14:48] LABS: Creatinine Clr Calc Pharmacy 106.8 ml/min
--- NOTE | 2024-06-26 15:11 | Electrocardiogram Report ---
Test Reason : Blood Pressure : */* mmHG Vent. Rate : 60 BPM Atrial Rate : 60 BPM P-R Int : 216 ms QRS Dur : 78 ms QT Int : 466 ms P-R-T Axes : * -3 -79 degrees QTcB Int : 466 ms Sinus rhythm with 1st degree A-V block with occasional Premature ventricular complexes and Premature atrial complexes Diffuse Minor Nonspecific T wave abnormality Abnormal ECG When compared with ECG of 26-Jun-2024 09:18, Premature atrial complexes now present Confirmed by Otilio Smith ([id number]) on 06/26/2024 3:10:35 PM Referred By: REFERRED SELF Confirmed By: Otilio Smith
[2024-06-26] MEDS: ASPIRIN 81 MG ECTAB PO STA (15:23)
--- OUTSIDE RECORDS SUMMARY | 2024-06-26 16:52 | External Medical Summary | Continuity of Care Document ---
Author Name Unknown Organization [place] [id number] [facility] Address [address] [place], [place] [id number] Care Team Providers Care Activities Manager Name Role Phone Camilo Mariee Primary Care Physician [phone] [facility]counter [facility] [id number] Date(s): 05/22/24 - 05/22/[address], [address] [place] [address] [phone] Encounter Diagnosis CAD (coronary artery disease)(Discharge Diagnosis) - 05/22/24 Thoracic aortic aneurysm(Discharge Diagnosis) - 05/22/24 Nightmares(Discharge Diagnosis) - 05/22/24 Hypercholesterolemia(Discharge Diagnosis) - 05/22/24 Atherosclerotic heart disease of in[place] coronary artery without angina pectoris (Final) - Thoracic aortic aneurysm, without rupture, unspecified(Final) - Nightmare disorder(Final) - Pure hypercholesterolemia, unspecified(Final) - Discharge Disposition: Home or Self Care Attending Physician: DO Ahuja Michelle L Allergies, Adverse Reactions, Alerts Substance Criticality Severity Reaction Reaction Severity Status Brilinta Unable to assess criticality Moderate sob Active Medications aspirin 81 mg oral delayed release tablet Start: 05/22/24 8:32:00 AM EDT, 1 tab, PO, Daily Start Date: 05/22/24 Status: Ordered azelastine 137 mcg/inh (0.1%) nasal spray INHALE 2 SPRAYS INTO NOSTRIL ONE TIME IN EACH NOSTRIL Start Date: 05/22/24 Status: Ordered pantoprazole 40 mg oral delayed release tablet TAKE 1 TABLET BY MOUTH EVERY DAY Start Date: 05/22/24 Status: Ordered rosuvastatin 5 mg oral tablet Start: 05/22/24 2:02:00 PM EDT, 1 tab, PO, Daily Start Date: 05/22/24 Status: Ordered valsartan 40 mg oral tablet Start: 05/22/24 3:17:00 PM EDT, 1 tab, PO, qhs, Disp# 90 tab, Refills: 3, Note to Pharmacy: CARO metoprolol due to night terrors, Pharmacy: [facility]/pharmacy #[id number] Start Date: 05/22/24 Status: Ordered Xarelto 2.5 mg oral tablet Start: 05/22/24 8:32:00 AM EDT, 1 tab, PO, bid Start Date: 05/22/24 Status: Ordered Mental Status 05/22/24 Barriers to Learning one year None evide nt Mandatory Health Literacy Documentation Yes Health Literacy Communication Barriers N ever Primary Language Turkish Problem List Condition Confirmation Course Effective Dates Status Health Status Informant Thoracic aortic aneurysm Confirmed Active CAD (coronary artery disease) Confirmed Active Essential hypertension Confirmed Active Gastroesophageal reflux Confirmed Active Hypercholesterolemia Confirmed Active Hypothyroidism Confirmed Active Mixed hyperlipidemia Confirmed Active PVC's (premature ventricular contractions) Confirmed Active Diagnosis Diagnosis Type Effective Dates Health Status Clinical Service Informant Nightmares Discharge Diagnosis 05/22/24 Non-Specifie d CAD (coronary artery disease) Discharge Diagnosis 05/22/24 Non-Specifie d Thoracic aortic aneurysm Discharge Diagnosis 05/22/24 Non-Specifie d Hypercholesterolemia Discharge Diagnosis 05/22/24 Non-Specifie d Procedures Procedure Date Related Diagnosis Body Site Status Cardiac catheterization 1 Completed p-lad m-lad Results Laboratory List Name Date Basic Metabolic Panel (BASIC METAB PANEL ) 05/22/24 Complete Blood Count w Differential (CBC ,DIFFH) 05/22/24 Lipid Profile (LIPOPROTEINS) 05/22/24 Liver Profile (LIVER PROFILE) 05/22/24 Most recent to oldest [Reference Range]: 1 eGFR CKD-EPI [>60 mL/min/1.73 m2] >90 mL /min/1.73 m2 1 (05/22/24 3:23 PM) Non-HDL 88 mg/dL 2 (05/22/24 3:23 PM) MPV [9.0-12.2 fL] 12.4 fL *HI* (05/22/24 3:23 PM) Immature Gran% 0.7 % (05/22/24 3:23 PM) Neut% 58.7 % (05/22/24 3:23 PM) Lymph% 22.8 % (05/22/24 3:23 PM) Tensas% 13.0 % (05/22/24 3:23 PM) Baso% 0.8 % (05/22/24 3:23 PM) Eos% 4.0 % (05/22/24 3: PM) Immat Gran, Abs [0-0.4 K/uL] 0.05 K/uL (05/22/24 3:23 PM) Neut, Abs [2.0-7.7 K/uL] 4.46 K/uL (05/22/24 3: PM) Lymph, Abs [1.0-3.4 K/uL] 1.73 K/uL (05/22/24 3:23 PM) Tensas, Abs [0-1.0 K/uL] 0.99 K/uL (05/22/24 3: PM) Baso, Abs [0-0.1 K/uL] 0.06 K/uL (05/22/24 3:23 PM) Eos, Abs [0-0.5 K/uL] 0.30 K/uL (05/22/24 3: PM) Type of Diff: AUTO *Unknown* (05/22/24 PM) RDW [11.5-14.2 %] 13.2 % (05/22/24 3: PM) Anion Gap [5-14 mmol/L] 7 mmol/L (05/22/24: PM) Alk Phos [38-126 unit/L] 145 unit/L *HI* (05/22/24: PM) ALT [<50 unit/L] 23 unit/L 3 (05/22/24: PM) BUN [7-20 mg/dL] 15 mg/dL (05/22/24: PM) Ca [8.4-10.2 mg/dL] 9.2 mg/dL (05/22/24: PM) Chol/HDL 3 (05/22/24 PM) Chol [125-200 mg/dL] 124 mg/dL *LOW* (05/22/24 PM) Cl- [96-107 mmol/L] 107 mmol/L (05/22/24: PM) HCO3 [22-30 mmol/L] 27 mmol/L (05/22/24: PM) Cret [0.70-1.30 mg/dL] 0.92 mg/dL (05/22/24 3: PM) Glu [74-106 mg/dL] 95 mg/dL (05/22/24: PM) Hct [39-48 %] 48.6 % *HI* (05/22/24: PM) HDL [>35 mg/dL] 36 mg/dL (05/22/24 PM) Hgb [13.0-17.0 g/dL] 15.9 g/dL (05/22/24: PM) K [3.5-5.1 mmol/L] 4.3 mmol/L (05/22/24 PM) LDL Chol, Calculated [50-130 mg/dL] 69 m g/dL (05/22/24 PM) MCH [28-33 pg] 31.5 pg (05/22/24 PM) MCHC [32-36 g/dL] 32.7 g/dL (05/22/24: PM) MCV [81-96 fL] 96.4 fL *HI* (05/22/24: PM) Na [137-145 mmol/L] 141 mmol/L (05/22/24 PM) Plts [150-350 K/uL] 230 K/uL (05/22/24: PM) RBC [4.40-5.60 M/uL] 5.04 M/uL (05/22/24: PM) T Bili [0.2-1.3 mg/dL] 2.3 mg/dL *HI* (05/22/24: PM) TG [<200 mg/dL] 95 mg/dL (05/22/24 3: PM) WBC [4.0-10.4 K/uL] 7.59 K/uL (05/22/24: PM) 1Result Comment: Testing Performed By: Dept of Pathology [facility] [address], [address] [facility] [place] [address] 2Result Comment: Testing Performed By: Dept of Pathology [facility] [address], [address] [facility] [place] [address] 3Result Comment: Testing Performed By: Dept of Pathology [facility] [address], [address], [place] [address] Vital Signs Most recent to oldest [Reference Range]: 1 Patient Weight 92.2 kg (05/22/24 2:09 PM) Heart Rate 81 bpm (05/22/24 2:09 PM) Respiratory Rate 18 br/min (05/22/24 2:09 PM) Blood Pressure 102/78mmHg (05/22/24 2:09 PM) Cuff Pulse Pressure 24 mmHg (05/22/24 2:09 PM) Social History Social History Type Response Smoking Status Never smoked cigaret anika Sex Male Sex Representation Male (finding) Patient Care team information Care Team Personnel Name: MD Mariee Darren M Position: Referring Member Role: Primary Care Provider Address: [address] [place] [id number]
--- NOTE | 2024-06-26 17:07 | Cardiac Catheterization ---
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 Cardiac Status Clinical evaluation leading to the procedure CAD Presenation: Non STEMI Anginal Classification: CCS IV Heart Failure: No Cardiogenic Shock within 24 Hours: No Cardiac Arrest within 24 Hours: No Imaging Studies Past 6 Months: No Stress Studies Past 6 Months: No Coronary Anatomy Dominant: Right Left Main (% Stenosis): Normal LAD (% Stenosis): Proximal (20 to 30%), Mid (Stent patent) and Distal (Stent patent) D1 (% Stenosis): Normal D2 (% Stenosis): Proximal (50%) Circumflex (% Stenosis): Proximal (40 to 50%) OM1 (% Stenosis): Normal (Stent train patent) RCA (% Stenosis): Proximal (99%, complex with thrombus plus or minus small dissection), Mid (Less than 40%) and Distal (80 to 90% with ectasia) R PDA (% Stenosis): Proximal (50%) R PL1 (% Stenosis): Proximal (40% with ectasia) Diagnostic Physicians Name: Rupert Bhakta MD, PhD Closure Device Percutaneous Entry Location: Radial for diagnostic, femoral for PCI Closure Device: Angio-Seal and Radial Band Recommendations: Medical Therapy and/or Counseling and PCI without planned CABG PCI Indication: PCI for high risk Non-JOSE Lesion Segment Name: RCA Culprit Artery: Yes Stenosis Prior to Rx (%): 99%, 80 to 90% Chronic Total Occlusion: No Pre-Procedure JAN Flow: 1 Previously Treated Lesion: No Lesion Complexity: High/C Lesion Length (mm): 10 mm proximally, 12 mm distally Thrombus Present: Yes Bifurcation Lesion: No Guidewire Across Lesion: Yes Intraprocedure Events Significant Disection: No Perforation: No Cardiac Cath Procedure Full Procedure Date June 26, 2024 Pre-Procedure Diagnosis Pre-Procedure Diagnosis: Non STEMI AUC Score AUC Score: 07 Post-Procedure Diagnosis Post-Procedure Diagnosis: Severe CAD and Successful PCI Procedure(s) Performed Procedure(s) Performed: Coronary Angiography, Drug Eluting Stent and Ultrasound Guided Vascular Access Chute Operator Rupert Bhakta MD, PhD Estimated Blood Loss Estimated Blood Loss: 15 cc Medication(s) Medication(s): Fentanyl, Heparin, Lidocaine 1%, Nicardipine, Nitroglycerin and Versed Summary of Findings Brief description: Patient was brought to the cardiac catheterization suite where he was shaved and prepped in a sterile fashion. Sedated using IV Versed and fentanyl. Soft tissues of the right wrist were anesthetized using 2 mL 1% Xylocaine. The right radial artery was accessed using the ultrasound and a modified Seldinger technique. A 6 Frisian radial artery glide sheath was placed. Patient's ACT was checked and additional heparin was provided. Patient was also provided with antispasmodics including nicardipine and nitroglycerin. Left coronary angiography in orthogonal views with a 5 Frisian JL 3.5 diagnostic catheter. Right coronary angiography in orthogonal views with a 5 Frisian AR-1 diagnostic catheter. The diagnostic catheters were removed. Decision was made to proceed with attempted PCI of the RCA. However, because of the patient's tortuous innominate and the tortuous RCA decision was made to abandon radial approach and attempt from the femoral artery approach. Soft tissues of the right groin were anesthetized using 10 mL of 1% Xylocaine. Using the ultrasound for guidance and a 4 Frisian micropuncture kit, the right femoral artery was accessed. The micropuncture sheath was then exchanged over a 0.035 short J-tip wire for a 6 Frisian femoral artery sheath. A 6 Frisian JR 4.0 guide catheter was then advanced over a long J-wire and used to engage the right coronary artery (with difficulty). BMW reversal guidewire was advanced and eventually was passed distally in the RCA. A 2.5 x 12 mm trek balloon was advanced and delivered across the distal RCA lesion. It was predilated up to 14 delmer. In addition to checking the ACT and providing additional heparin as needed throughout the case, the patient was started on an Integrilin drip after double bolus administration. After removal of the trek balloon, a [place] guide liner was advanced and positioned just proximal to the proximal RCA lesion. A 2.5 x 8 mm trek balloon was then advanced and the lesion was predilated at 8 delmer x 2. It was then removed. A 2.5 x 15 mm [place] drug-eluting stent was then advanced with some difficulty and positioned across the distal lesion where it was deployed at 16 delmer. Stent balloon was then removed. A 2.75 x 18 mm drug-eluting stent was attempted to be delivered across the proximal LAD lesion but because of tortuosity and calcification we were unable to deliver the stent despite multiple attempts including use of the guide liner catheter. A 2.75 x 15 mm [place] drug-eluting stent was then advanced and again with significant difficulty we were able to eventually position the stent across the complex proximal RCA lesion. There was deployed initially at 16 delmer with a second inflation up to 18 delmer. Stent balloon was then removed. We wished to post dilate the stent further using a 2.75 x 8 mm [place] Bernard balloon but we were unable to pass anything through the proximal stent. Further attempts were therefore abandoned. Guidewire and guide liner were removed from the patient. Final angiographic evaluation was performed. Guide catheter was removed from the patient. Limited right femoral artery angiography was performed to evaluate for closure. Findings were favorable, therefore, the femoral artery sheath was removed and hemostasis was obtained using the Angio-Seal closure device. This was deployed in the recommended fashion. We obtained immediate hemostasis and the patient remained hemodynamically stable. The radial artery sheath was then removed and hemostasis was obtained using a TR band. He was then returned to the recovery area. This ended the case. Coronary angiography findings: RUR-hoinm-ubcrict short vessel which bifurcates into LAD and circumflex. No disease. TOK-mpdsi-chxengw vessel. It has a stent train in the mid to distal vessel. Proximally there is mild less than 20 to 30% stenosis. LAD provides a small first diagonal and a medium branching second diagonal which has less than 50% stenosis. XNq-oyktm-jbthudq and nondominant. Proximal 40 to 50% stenosis. There is a OM1 which is multi branching and has a stent train which is widely patent. There is robust collateralization from the circumflex to the distal RCA branches. RCA-this is a large-caliber dominant vessel. It is tortuous proximally with ectatic portions. There is a 99% occlusion after which follows either a small dissected portion with thrombus or possibly a small branch coming off the RCA. There is JAN I flow beyond the lesion. The mid RCA has diffuse mild disease less than 40% narrowed. Distally there is diffuse disease with up to 80 to 90% stenosis early and then the vessel bifurcates into a large and long PDA and a medium to large multi branching posterolateral. Posterolateral appears to have ectasia as well as proximal 40% stenosis. The PDA has proximal 50% stenosis just after it bifurcates from the RCA. PCI of RCA-0% residual stenosis distally and proximally post PCI JAN-3 flow post PCI No evidence of PCI induced dissection/perforation There is small residual branch or flap covered by the proximal stent post PCI. No staining. Summary: 1. Prior stents are patent 2. Moderate nonocclusive coronary disease in the left coronary system 3. Severe and complex coronary disease and a tortuous/ectatic dominant RCA with lesions proximally and distally. 4. Successful PCI with implantation of 2 drug-eluting stents in the RCA. Congregational of JAN-3 flow and no evidence of complication. 5. Patient will be loaded with Plavix 600 mg p.o., take 75 mg p.o. daily thereafter, continue aspirin 81 mg daily. In the short-term, Integrilin drip for 18 hours and restart his vascular disease dose of rivaroxaban (2.5 mg p.o. twice daily). 6. Guideline directed medical therapy for secondary prevention of coronary disease already includes aspirin, metoprolol succinate, and rosuvastatin. Additional alterations in his regimen per primary violin mechanic. Hemodynamics Rest Ao:: 117/71 mmHg Final Ao: 144/73 mmHg LV: Not performed Recommendations Recommendations: Medical Therapy and/or Counseling and PCI without planned CABG Radiation Exposure (mGy) 3904 mGy, fluoroscopy time 31.6 minutes Contrast (mls) 285 cc Anesthesia 3 mg Versed, 25 mg of Benadryl, 75 mcg fentanyl IV. Start time 1109, end t Procedural Complication(s) None Disposition PCU I attest to the content of the Intraoperative Record and any orders documented therein. Any exceptions are noted below. [facility] Card Cath Procedure Codes Cardiac Catheterization Procedure 1: Cardiovascular Cath Procedures: 60756 Coronaries Therapeutic Services & Ancillary Procedure 1: Cardiovascular Tx and Anc Procedures: 23892 Ultrasonic Guidance Vascular Access Moderate Sedation Procedure 1: Sedation/Anesthesia: 91492 Mod Sedation by the same physician;Init15 Min Child Age 5 & Up (Initial 15 minutes, start time 1109) Procedure 2: Sedation/Anesthesia: 85748 Mod Sedation by the same physician; Ea [id number] Minutes (Additional 76 minutes, end time 1240) Stenting Procedure 1: Cardiovascular Stent Procedures: 34019 Perc transluminal revascularization of acute sub/total occl, aMI (RCA) PG Care Time/CCT Total # of Minutes Spent Total Time Spent with Patient: Total time spent is greater than 50% in coordination of care (as documented) at patient's floor/unit and/or counseling patient:
[2024-06-26] MEDS: PANTOprazole 40 MG TAB PO SCH (17:45)
[2024-06-26] MEDS: RIVAROXABAN 2.5 MG TAB PO SCH (21:54)
[2024-06-27 06:42] LABS: Basophils # (auto) 0.05 K/uL (0.00-0.20); Basophils % (auto) 0.6 %; Eosinophils # (auto) 0.25 K/uL (0.00-0.50); Eosinophils % (auto) 3.1 %; Hematocrit (blood only) 42.8 % (42.0-52.0); Immature Granulocytes # (auto) 0.03 K/uL (0.01-0.20); Immature Granulocytes % (auto) 0.4 %; Lymphocytes # (auto) 1.11 K/uL (1.20-3.40); Lymphocytes % (auto) 13.8 %; Mean Corpuscular Hemoglobin 31.6 pg (25.0-34.0); Mean Corpuscular Volume 90.1 fL (80.0-100.0); Mean Platelet Volume 12.6 fL (9.4-12.4); Monocytes # (auto) 0.98 K/uL (0.11-0.59); Monocytes % (auto) 12.2 %; Neutrophils # (auto) 5.63 K/uL (1.40-6.50); Neutrophils % (auto) 69.9 %; Platelet Count 181 K/uL (130-400); RDW Coefficient of Variation 13.2 % (11.5-14.5); RDW Standard Deviation 43.2 fL (36.4-46.3); Red Blood Count 4.75 M/uL (4.70-6.10); White Blood Count 8.05 K/ul (4.8-10.8)
[2024-06-27 07:02] LABS: BUN Creatinine Ratio 15.9 (10-20); Calcium 8.8 mg/dl (8.6-10.3); Chol HDL Ratio 2.8 (0-5); Creatinine Clr Calc Pharmacy 93.4 ml/min; Magnesium 1.7 mg/dl (1.7-2.4)
--- NOTE | 2024-06-27 08:02 | Cardiology Progress Note ---
Date of Service June 27, 2024 Assessment & Plan Admission and Anticipated Discharge Date Admission Date: June 26, 2024 Results & Data Vital Signs (Past 12 Hours) Vital Signs Temp Pulse Pulse Resp BP Pulse Ox O2 Del Method 06/27/24 07:56 65 06/27/24 03:13 36.5 C 54 L 18 137/74 97 Room Air 06/26/24 23:37 66 06/26/24 23:10 36.7 C 62 18 138/82 97 Room Air 06/26/24 20:06 36.4 C L 63 18 163/89 H 95 Room Air Laboratory Results Abnormal lab results 06/26/24 06/26/24 06/26/24 Range/Units 11:40 12:08 12:40 MPV (9.4-12.4) fL Lymph # (Auto) (1.20-3.40) K/uL [place] # (Auto) (0.11-0.59) K/uL Activ Coag Time Kaolin 214 H 250 H 287 H (94-140) SECONDS 06/27/24 Range/Units 05:49 MPV 12.6 H (9.4-12.4) fL Lymph # (Auto) 1.11 L (1.20-3.40) K/uL [place] # (Auto) 0.98 H (0.11-0.59) K/uL Activ Coag Time Kaolin (94-140) SECONDS Medications Administered Current Inpatient Medications Clopidogrel Bisulfate (Clopidogrel Bisulfate 75 Mg Tab) [facility] [place] [facility]: 07/27/24 08:59 Metoprolol Succinate (Metoprolol Succ 25mg Ext Rel Tab) 25 mg PO [facility] Stop: 07/27/24 08:59 Pantoprazole Sodium (Pantoprazole 40 Mg Tab) [facility] [place] Stop: 07/26/24 17:29 Last Admin: 06/26/24 17:45 Dose: 40 mg Rivaroxaban (Rivaroxaban 2.5 Mg Tab) 2.5 mg PO BID [facility] Stop: 07/26/24 20:59 Last Admin: 06/26/24 21:54 Dose: 2.5 mg Rosuvastatin Calcium (Rosuvastatin Calcium 10 Mg Tab) [facility] [place] Stop: 07/27/24 08:59 Pantoprazole Sodium (Pantoprazole 40 Mg Tab) [facility] [place] Stop: 07/26/24 17:29 Last Admin: 06/26/24 17:45 Dose: 40 mg Documented By: SHARITA Rivaroxaban (Rivaroxaban 2.5 Mg Tab) 2.5 mg PO BID [facility] Stop: 07/26/24 20:59 Last Admin: 06/26/24 21:54 Dose: 2.5 mg Documented By: LINDA
[2024-06-27] MEDS: CLOPIDOGREL BISULFATE 75 MG TAB PO SCH (08:05)
[2024-06-27] MEDS: METOPROLOL SUCC 25MG EXT REL TAB PO SCH (08:05)
[2024-06-27] MEDS: [UNRECOGNIZED DRUG - REMARK] ONE (08:05)
[2024-06-27] MEDS: ROSUVASTATIN CALCIUM 10 MG TAB PO SCH (08:06)
[2024-06-27 08:14] VITALS: RESP 17
[2024-06-27 08:33] LABS: Estimated Average Glucose 103 mg/dl; Hemoglobin A1C 5.2 % (4.5-5.6)
--- NOTE | 2024-06-27 08:43 | Electrocardiogram Report ---
Test Reason : Blood Pressure : */* mmHG Vent. Rate : 81 BPM Atrial Rate : 81 BPM P-R Int : 200 ms QRS Dur : 82 ms QT Int : 376 ms P-R-T Axes : 69 -4 -29 degrees QTcB Int : 436 ms Sinus rhythm with frequent Premature ventricular complexes and Premature atrial complexes Minimal voltage criteria for LVH, may be normal variant ( R in aVL ) Diffuse Minor Nonspecific T wave abnormality Abnormal ECG When compared with ECG of 10-Nov-2020 14:16, Premature ventricular complexes are now Present Confirmed by Otilio Smith ([id number]) on 06/27/2024 8:42:53 AM Referred By: REFERRED SELF Confirmed By: Otilio Smith
[2024-06-27] MEDS: nadoloL 40 MG TAB PO SCH (10:08)
[2024-06-27 10:20] VITALS: BP 135/78; TEMP 97.5; O2SAT 98
[2024-06-27] MEDS: ASPIRIN 81 MG ECTAB PO SCH (10:46)
--- NOTE | 2024-06-27 11:11 | Cardiology Progress Note ---
Date of Service June 27, 2024 Assessment & Plan (1) NSTEMI (non-ST elevated myocardial infarction): Plan: Successful PCI to the RCA. Patent stents in the left coronary system as described in cath report. At minimum he will remain on dual antiplatelet therap y with aspirin 81 mg daily and Plavix 75 mg daily. I do not feel strongly 1 way or another regarding the Xarelto 2.5 mg p.o. twice daily. If he does not have excessive bleeding risk it may be reasonable at least in the short-term to be on this low-dose triple therapy. I will leave that decision up to the patient and Dr. Ahuja. (2) Hypercholesteremia: Plan: Patient is high risk. High intensity statin therapy is recommended. Agent and dose determined by primary storm chaser. (3) Thoracic aortic aneurysm: Plan: This certainly could have impacted the ability to engage his coronaries as we experienced during his catheterization. Of course, therapy should be focused on control of his risk factors including dyslipidemia, hypertension, etc. Surveillance CTA per Dr. Ahuja. (4) Benign essential hypertension: Plan: Blood pressure has been at the upper limit of acceptable or over target. He is currently on nadolol. Would consider the addition of valsartan as he had previously tolerated this medication. (5) Coronary artery disease: Plan: Patient has severe multivessel coronary disease now treated with multivessel stenting. Guideline directed medical therapy for secondary prevention as determined by his primary storm chaser. Plan From an interventional cardiology standpoint the patient is is now appropriate for discharge. He should follow-up with Dr. Ahuja within 4 weeks. I also strongly encouraged him to participate in cardiac rehab. Admission and Anticipated Discharge Date Admission Date: June 26, 2024 Subjective Patient without any further chest pain overnight. He denies pain at the radial or the groin access site. Seems to be tolerating his medications. No other complaints or concerns at this time. The Integrilin was stopped at 8 AM. Discussed discontinuing the Xarelto with Dr. Ahuja. That is reasonable. He will remain on aspirin and Plavix. Review of Systems Review of Systems: Negative except as per HPI Physical Exam Constitutional: WD/WN, vitals as above Eyes: PERRL, conjunctivae normal, anicteric sclerae ENMT: [place] is pink moist and intact Neck: No JVD Respiratory: Clear to auscultation bilaterally. No wheezing, rhonchi, or rales. Cardiovascular: Regular rate and rhythm. S4 gallop. Do not appreciate any rubs or murmurs today Musculoskeletal: no cyanosis or clubbing, extremities motor strength 5/5 (Radial site clean dry and intact. Femoral site mild ecchymosis. No bruit) Neurologic: Cognition is intact. Speech is fluent. No focal deficits. Psychiatric: A+Ox3, euthymic affect Results & Data Vital Signs (Past 12 Hours) Vital Signs Temp Pulse Pulse Resp BP Pulse Ox O2 Del Method 06/27/24 10:19 36.4 C L 74 17 135/78 98 Room Air 06/27/24 08:02 36.6 C 60 17 154/83 H 97 Room Air 06/27/24 07:56 65 06/27/24 03:13 36.5 C 54 L 18 137/74 97 Room Air 06/26/24 23:37 66 06/26/24 23:10 36.7 C 62 18 138/82 97 Room Air PG Care Time/CCT Total # of Minutes Spent Total Time Spent with Patient: Total time spent is greater than 50% in coordination of care (as documented) at patient's floor/unit and/or counseling patient: Coding Level of Care Code 51822 SUB INP/OBS CARE 2/35MIN Diagnoses NSTEMI (non-ST elevated myocardial infarction) I21.4 Hypercholesteremia E78.00 Thoracic aortic aneurysm I71.20 Benign essential hypertension I10 Coronary artery disease I25.10
--- NOTE | 2024-06-27 14:14 | Hospitalist Progress Note ---
Date of Service June 27, 2024 Assessment & Plan (1) NSTEMI (non-ST elevated myocardial infarction): Plan: 68 y/o M with PMHx CAD s/p cardiac stents, transferred from [facility] 2/2 chest pain elevated troponin (92 -> 259). Patient taken for cardiac catheterization 06/26 with PCI to RCA; case discussed with Dr. Ahuja and Dr. Bhakta, both following. - Cardio recs- continue aspirin 81 mg daily, Plavix 75 mg daily, d/c Xarelto 2.5 mg p.o. twice daily - Previously on nadolol but would better benefit from metoprolol; Restart metoprolol outpt; benefits outweigh risk (night terrors) - Continue valsartan 40 mg po HS, continue rosuvastatin 10 mg po daily, possible increase to high intensity statin following d/c - Outpatient surveillance CTA per Dr. Ahuja; follow-up outpatient with Dr. Ahuja within 4 weeks. - Lipid panel grossly WNL - A1c 5.2% Plan GERD - continue pantoprazole 40mg PO daily VTE Prophylaxis - IV heparin 06/26 Code- full Disposition -possible discharge today Admission and Anticipated Discharge Date Admission Date: June 26, 2024 Subjective Patient is laying in bed at time of visit. His is present in the room at this time. States that he has no symptoms. His only concern going into the day was when he was to have a bowel movement in the toilet rather than a bedpan. Patient does report that he had a bowel movement this a.m., and therefore has no complaints. Specifically denies chest pain, shortness of breath, palpitations, cough, abdominal pain, N/V/D/C, numbness/tingling. Telemetry: NSR, PVCs and PACs, heart rate 60s to 70s Review of Systems Review of Systems: All systems reviewed & are unremarkable except as noted in Subjective Physical Exam Physical Exam: General: No acute distress, well developed. Neck: Supple, no LAD; no JVD Cardio: RRR, no M/R, S1 and S2 normal; S4 (?) Resp: Chest wall symmetric, normal respiratory effort; No respiratory distress, Lungs CTA in all lobes bilaterally, no wheezes, rales, or rhonchi Abdomen: Soft, symmetric, nontender; No visible lesions or scars; no distention; No masses or hepatosplenomegaly MSK: No edema; Pulses palpable and equal; R wrist with dressing over access site, surrounding area is not warm or erythematous; R groin with dressing over access site, mild ecchymosis but not warm or erythematous. Neuro: Awake, alert Psych: Appropriate mood and affect; good judgement and insight. Results & Data Results & Data Vital Signs (Past 12 Hours) Vital Signs Temp Pulse Pulse Resp BP Pulse Ox O2 Del Method 06/27/24 10:19 36.4 C L 74 17 135/78 98 Room Air 06/27/24 08:02 36.6 C 60 17 154/83 H 97 Room Air 06/27/24 07:56 65 06/27/24 03:13 36.5 C 54 L 18 137/74 97 Room Air PG Care Time/CCT Total # of Minutes Spent Total Time Spent with Patient: Total time spent is greater than 50% in coordination of care (as documented) at patient's floor/unit and/or counseling patient: Coding Level of Care Code 83806 SUB INP/OBS CARE 10/05MIN Diagnoses NSTEMI (non-ST elevated myocardial infarction) I21.4 Time Spent (min) 30
--- NOTE | 2024-06-27 14:44 | Discharge Summary ---
<Statement entered by Klarissa Allen MD - 06/27/24 17:17> I have reviewed vital signs, chart notes, labs and imaging. I have personally seen, evaluated and examined the patient. I have also discussed the management of the patient with the OLENA and I agree with the exam findings documented in the history and physical examination and the documented assessment and plan unless otherwise stated below. Kevyn is doing well following PCI yesterday, exam notable for clear lungs heart regular no murmurs, right radial access site without swelling or hematoma he has good perfusion of his right hand, right groin access site without swelling hematoma or ecchymosis, no bruit Discharge Summary Date of Service June 27, 2024 Principal Dx & Hospital Course #1 = Principal Diagnosis (1) NSTEMI (non-ST elevated myocardial infarction): 68 y/o M with PMHx CAD s/p cardiac stents, transferred from [facility] 2/2 chest pain elevated troponin (92 -> 259). Patient taken for cardiac catheterization 06/26 with PCI to RCA; case discussed with Dr. Ahuja and Dr. Bhakta, both following. - Cardio recs- continue aspirin 81 mg daily, Plavix 75 mg daily, d/c Xarelto 2.5 mg - Previously on nadolol but would better benefit from metoprolol; Restart metoprolol outpt; benefits outweigh risk (night terrors) - Continue valsartan 40 mg po HS, continue rosuvastatin 10 mg - Possible increase to high intensity statin per discretion of outpatient coil tester - Outpatient surveillance CTA per Dr. Ahuja; follow-up outpatient with Dr. Ahuja within 4 weeks. - Lipid panel grossly WNL - A1c 5.2% 06/27: Per my progress note Patient is laying in bed at time of visit. His is present in the room at this time. States that he has no symptoms. His only concern going into the day was when he was to have a bowel movement in the toilet rather than a bedpan. Patient does report that he had a bowel movement this a.m., and therefore has no complaints. Specifically denies chest pain, shortness of breath, palpitations, cough, abdominal pain, N/V/D/C, numbness/tingling. Telemetry: NSR, PVCs and PACs, heart rate 60s to 70s Plan GERD - continue pantoprazole 40mg PO daily VTE Prophylaxis - IV heparin 06/26 Code- full Disposition - Medically stable for discharge, discharge today Complete patient education of current condition and management was provided. All questions that the patient asked were answered, and the patient demonstrated complete understanding. Admission HPI Per Admitting Provider Armaan Phillips is a 68 year old male with known silent coronary artery disease s/p cardiac stents who presents as a direct admission from [facility] due to chest pain with elevated troponin. He presented to the ER overnight with chest pain after eating earlier in the evening. [place] like indige stion with pressure across upper chest with symptoms lasting for an hour. No radiation, diaphoresis or shortness of breath. Some relief with antacid and improved with lying down. In the ER his troponin increased from 92 -> 259 and his case was discussed with his lead applications developer coil tester Dr Llanes and accepted patient for transfer. Admission Exam Per Admitting Provider Constitutional: WD/WN, vitals as above Eyes: + anicteric sclerae; normal pupil size ENMT: external ear and nose normal, oropharynx normal Respiratory: normal respiratory effort, lungs clear to auscultation Cardiovascular: RRR, no murmur, no edema Gastrointestinal (Abdomen): normal bowel sounds, soft, nontender, no hepatosplenomegaly Musculoskeletal: no cyanosis or clubbing, extremities motor strength 5/5 Skin: no rashes, warm and dry Neurologic: moves all extremities and awake; not confused Psychiatric: A+Ox3, euthymic affect Discharge Exam General: No acute distress, well developed. Neck: Supple, no LAD; no JVD Cardio: RRR, no M/R, S1 and S2 normal; S4 (?) Resp: Chest wall symmetric, normal respiratory effort; No respiratory distress, Lungs CTA in all lobes bilaterally, no wheezes, rales, or rhonchi Abdomen: Soft, symmetric, nontender; No visible lesions or scars; no distention; No masses or hepatosplenomegaly MSK: No edema; Pulses palpable and equal; R wrist with dressing over access site, surrounding area is not warm or erythematous; R groin with dressing over access site, mild ecchymosis but not warm or erythematous. Neuro: Awake, alert Psych: Appropriate mood and affect; good judgement and insight. Discharge Plan Discharge Items Patient Disposition: Home - Self-Care Reason For Visit: NSTEMI Discharge Diagnosis: NSTEMI S/p PCI to RCA Activity: Resume your previous activity Lifting: Gradually increase as tolerated Exercise/Sports: As tolerated Non-emergency contact: Primary Care Provider and Boilermaker Fitter Call non-emergency contact if: you have any medication questions, your symptoms worsen, your pain is not controlled, your pain is worsening, your pain is unusual for you and your pain is concerning for you Follow-up/Referrals: Rupert Middleton, [Primary Care Provider] - Diet: Heart Healthy Addtl Attending Provider Instructions: You were diagnosed and treated for an NSTEMI (non-ST elevation myocardial infarction), which required surgical intervention to a vessel of the heart (p ercutaneous coronary intervention [PCI] of the right coronary artery). Stents were placed which allow for better opening of the vessel as well as improved blood flow. The procedure was successful. We were able to identify elevated cardiac enzymes through blood work which indicated that there was stress to the heart. Additionally, tracing of the electrical activity of your heart (EKG) supported diagnosis of NSTEMI. This led to the necessity of the procedure above to be completed. Upon discharge, you should resume home medication regimen with the following exceptions/changes: Continue aspirin 81 mg daily, continue clopidogrel 75 mg p.o. daily, continue rosuvastatin but increase dose from 5 mg to 10 mg daily, continue valsartan 40 mg daily, stop rivaroxaban 2.5 mg, stop nadolol 40 mg, and start metoprolol succinate 25 mg daily. Please follow-up with Dr. Ahuja regarding outpatient surveillance CTA for thoracic aortic aneurysm, while also focusing on controlling your risk factors to include lipid abnormalities and high blood pressure. Dr. Ahuja also to determine dose adjustment from moderate intensity statin (rosuvastatin 10 mg) to high intensity statin, as recommended by Dr. Bhakta. Please follow-up with PCP in 1 week regarding hospital course. Please follow-up with Dr. Ahuja within 4 weeks of discharge. If you notice chest pain, shortness of breath, worsening of symptoms, or an abnormal heart rate/rhythm, please call your PCP or coil tester for advice or return to the ED immediately. Pending Studies at Discharge: No Stand-Alone Forms: My [employer], Smoking Cessation Medications and DC Order Prescriptions: New clopidogrel 75 mg Tablet 75 mg PO QAM 30 Days Qty: 30 0RF rosuvastatin 10 mg Tablet 10 mg PO QAM 30 Days Qty: 30 0RF metoprolol succinate 25 mg tablet extended release 24 hr 25 mg PO DAILY 30 Days Qty: 30 0RF Continued aspirin 81 mg tablet,delayed release (DR/EC) 81 mg PO QAM pantoprazole [Protonix] 40 mg Tablet,Delayed Release (Dr/Ec) 40 mg PO QAM valsartan 40 mg tablet 40 mg PO HS Discontinued Xarelto 2.5 mg tablet 2.5 mg PO BID rosuvastatin 5 mg tablet 5 mg PO DAILY Discharge Orders: Discharge Order (Routine); Ordered 06/27/24 Ordered By: Derick De Admission Data Admit Date/Time: 06/26/24 10:24 Attending Provider: Klarissa Allen Admit Provider: Hector Villa Primary Care Provider: Rupert Middleton Other Providers: Vicky Ahuja Hospital Stay Data Consultations 06/26/24 10:24 Consult Cardiology Stat 06/26/24 13:28 Consult Cardiac Rehabilitation Routine Procedures Performed Operation Date: 06/26/24 10:30 Actual Procedures p Cineradiography w/Routine Exam - Rupert Bhakta MD, PhD s Cath, Coronaries ONLY (no LV) - Rupert Bhakta MD, PhD s Drug Eluting Stent SGl Vessel - Rupert Bhakta MD, PhD Diagnostic Imagining Performed 06/26/24 10:56 CL Cath Imgs for PACS use only Stat Discharge Instructions Given to Patient (Per Discharging Provider) You were diagnosed and treated for an NSTEMI (non-ST elevation myocardial infarction), which required surgical intervention to a vessel of the heart (percutaneous coronary intervention [PCI] of the right coronary artery). Stents were placed which allow for better opening of the vessel as well as improved blood flow. The procedure was successful. We were able to identify elevated cardiac enzymes through blood work which indicated that there was stress to the heart. Additionally, tracing of the electrical activity of your heart (EKG) supported diagnosis of NSTEMI. This led to the necessity of the procedure above to be completed. Upon discharge, you should resume home medication regimen with the following exceptions/changes: Continue aspirin 81 mg daily, continue clopidogrel 75 mg p.o. daily, continue rosuvastatin but increase dose from 5 mg to 10 mg daily, continue valsartan 40 mg daily, stop rivaroxaban 2.5 mg, stop nadolol 40 mg, and start metoprolol succinate 25 mg daily. Please follow-up with Dr. Ahuja regarding outpatient surveillance CTA for thoracic aortic aneurysm, while also focusing on controlling your risk factors to include lipid abnormalities and high blood pressure. Dr. Ahuja also to determine dose adjustment from moderate intensity statin (rosuvastatin 10 mg) to high intensity statin, as recommended by Dr. Bhakta. Please follow-up with PCP in 1 week regarding hospital course. Please follow-up with Dr. Ahuja within 4 weeks of discharge. If you notice chest pain, shortness of breath, worsening of symptoms, or an abnormal heart rate/rhythm, please call your PCP or coil tester for advice or return to the ED immediately. Total Time Total Time Spent Total Time Spent (In Minutes): 30 Coding Level of Care Code None Diagnoses NSTEMI (non-ST elevated myocardial infarction) I21.4 Time Spent (min) 30
[2024-06-27 16:24] VITALS: PULSE 74
== END 2024-06-27 17:17 | disposition home or self-care (01) | DRG 322 ==
LOC: ED 09:12 → SUATTDRO 10:24 → INTOOBSV 10:24 → 2S 10:24
PROC: CLB.CCO (2024-06-26 10:30)